=== PATIENT | male | born 1940 | race Caucasian/White ===

== ENCOUNTER 2024-04-08 11:51 | Emergency (ER) | payer MEDICARE, SELFPAY ==
--- NOTE | ~2024-04-08 | XR_ITS ---
EXAMINATION: XR CHEST CLINICAL INFORMATION: cough COMPARISON: None available. TECHNIQUE: 2 views of the chest were obtained. FINDINGS: The cardiac, hilar, and mediastinal contours are normal. Lungs are diffusely hyperaerated bilaterally. There is flattening in hemidiaphragms. There is a focal opacity in the right lower lung distribution suggestive of pneumonia. This is not well seen on the lateral projection. There is no pneumothorax or pleural effusion. Pectus excavatum noted. There is no focal osseous or soft tissue abnormality. XR/XR chest 2V IMPRESSION: 1. Right lower lung opacity consistent with pneumonia. 2. COPD. Electronically signed by: Louis Verde MD 04/08/2024 01:41 PM MALIK
--- NOTE | 2024-04-08 12:06 | ED_ITS ---
HPI - URI/Sore Throat General Chief Complaint: Dyspnea Stated Complaint: Congestion , cough 4 days Time Seen by Provider: 04/08/24 18:02 Source: patient and family Mode of arrival: ambulatory Limitations: no limitations History of Present Illness ED Provider: Jon Barriga PA-C HPI Narrative: 83 y/o male with history of Alzheimer's dementia who presents to the ER for evaluation of SOB, chest congestion, productive cough for the last 3-4 days. son lives with them and is home sick with a virus. family reports he is very active, walks daily. he has been still able to walk around without SOB or difficulty breathing. he has not been complaining of chest pain. no fevers. he has been getting delsym for his symptoms at home. he is UTD on his flu vaccine and COVID shot. MD elicited complaint: cough and other (chest congestion, SOB) Onset (ago): day(s) Consistency: progressively worsening Severity: moderate Able to tolerate fluids by mouth: Yes Exacerbating factors: other (coughing) Relieving factors: OTC cold medicine Context: sick contacts Associated symptoms: cough and shortness of breath Treatments prior to arrival: none Related Data Previous Rx's ?Medication ?Instructions ?Recorded amoxicillin 875 mg-potassium 1 tab PO BID #14 tabs 04/08/24 clavulanate 125 mg tablet azithromycin 250 mg tablet See Rx Instructions PO .COMPLEX #6 04/08/24 (Zithromax Z-Teofilo) tabs benzonatate 100 mg capsule 100 mg PO TID PRN cough #20 caps 04/08/24 Allergies Allergy/AdvReac Type Severity Reaction Status Date / Time No Known Allergies Allergy Verified 04/08/24 12:10 Review of Systems Review of Systems: Yes all other systems are reviewed and are negative [facility] Social History Social History Advance Directives: No Advance Directives Information Provided: No Physical Exam Vital Signs: Vital Signs: Last Vital Signs Temp 0 F L 04/08/24 18:39 Pulse 0 L 04/08/24 18:39 Resp 0 L 04/08/24 18:39 BP 0/0 L 04/08/24 18:39 Pulse Ox 96 04/08/24 18:39 O2 Del Method Room Air 04/08/24 18:39 BMI result Body Mass Index 21.1 Appearance: Alert. Oriented X2. No acute distress. Head: normocephalic, atraumatic. Eyes: Pupils equal, round and reactive to light. ENT: Pharynx normal. No tonsillar swelling or exudate. Neck: Normal inspection. Neck supple. CVS: Normal heart rate and rhythm. Pulses normal. Respiratory: No respiratory distress. Breath sounds in expiratory wheeze in RUL that cleared after coughing, otherwise clear throughout. congested cough Abdomen: Soft and nontender. +BS x4 Skin: Skin warm and dry. Normal skin color. Normal skin turgor. No rashes. Extremities: No lower extremity edema. No joint swelling. Neuro/psych: Oriented X 2. steady gait, Normal speech. steady gait Medical Decision Making Medical Decision Making [facility] Narrative: 83-year-old with a history of Alzheimer's dementia presents to the ER for evaluation of 3-4 days of congested cough, shortness of breath. VSS on arrival. he is with his and daughter. he appears well. CXR showing RLL Infiltrate and he is positive for influenza A family wants to take him home. he is getting restless in the WR after waiting several hours. He was brought back into triage for re-eval. SPO2 95%. ambulated around w/ pulse ox and sats remained 96-97% no distress comfortable w/ discharge under the care of his family for CAP and supportive care for flu Differential Diagnosis Differential Diagnoses: The differential diagnosis associated with the presentation includes strep, covid, flu, rsv, other viral syndrome, bronchitis, pneumonia Admission/Observation Consideration of admission/observation: Escalation of care including admission/observation considered Lab Data [facility] Lab Attestation statement: I reviewed the patient's lab results. Labs: Lab Results 04/08/24 Range/Units 12:39 Influenza Type A (PCR) POSITIVE A (Negative) Influenza Type B (PCR) NEGATIVE (Negative) RSV RNA Qual (PCR) NEGATIVE (Negative) SARS-CoV-2 RNA (RT-PCR) NEGATIVE (Negative) Independent Interpretation I performed an independent interpretation of an: Plain X-Ray Interpretation: patchy infiltrate in RLL c/w PNA Radiology Impression Discussion of test interpretation with radiology: I have reviewed the radiologist's reading. Independent Historian Clinical information obtained from an independent historian. History obtained from or confirmed by: Spouse and Other (adult daughter ) Prescription Management I considered prescription management with: Antiviral and Antibiotic Chronic Conditions Patient?s care impacted by: Other (alzheimers ) Critical Care Time Critical Care Time Critical Care Time: No Discharge Plan Discharge Clinical Impression: Influenza A, CAP (community acquired pneumonia) Patient Disposition: Home, Self-Care Instructions: Influenza (DC), Community Acquired Pneumonia (DC) Additional Instructions: Chest x-ray showed right lower lobe pneumonia He tested positive for Flu. Take the prescribed antibiotics as directed, complete the entire course and do not miss any doses Rest and drink plenty of fluids Take over the counter cold/flu medications as needed for your symptoms. Follow up with your primary care doctor this week If you develop new or worsening symptoms call 911 or come back to the ER for further evaluation. Prescriptions: New azithromycin [Zithromax Z-Teofilo] 250 mg tablet See Rx Instructions .ROUTE .COMPLEX Qty: 6 0RF Rx Instructions: take 500 mg today (day 1), then 250 mg for 4 days (days 2-5) benzonatate 100 mg capsule 100 mg PO TID PRN (Reason: cough) Qty: 20 0RF amoxicillin-pot clavulanate 875-125 mg tablet 1 tab PO BID Qty: 14 0RF Referrals: Dom Dupont MD [Primary Care Provider] - Interventions: ED Discharge Assessment Last Done: 04/08/24 18:39 Discharge Date/Time: 04/08/24 18:40 Print Language: Barbadian
[2024-04-08 12:07] VITALS: BP 156/87; PULSE 55; RESP 20; TEMP 36.6; O2SAT 95; BMI 21.1
[2024-04-08 13:25] LABS: Influenza A PCR POSITIVE (Negative); Influenza B PCR NEGATIVE (Negative); Resp Syncy Virus RNA Qual PCR NEGATIVE (Negative); SARS COV2 PCR INHOUSE NEGATIVE (Negative)
[2024-04-08 17:59] VITALS: BP 189/97; PULSE 60; RESP 18; TEMP 36.4; O2SAT 95
[2024-04-08 18:02] VITALS: O2SAT 96
--- OUTSIDE RECORDS SUMMARY | 2024-04-08 18:12 | XMS_ITS | Encounter Summary ---
Author Organization [facility] Address [address] [place] [address] Care Team Providers Care Scrap Carrier Name Role Phone Dom Dupont MD Primary Care Provider [phone] Reason for Visit * Reason Onset Date Comments Cough 04/08/2024 Hacking and conf used Encounter Details Date Type Department Care Team ([facility] st Contact Info) Description 04/08/2024 Telephone Adult Medicine [facility] [address] [place] [phone] Dmo Dupont MD [address] [place] [address] [phone] Cough (Hacking and confused ) Social History Tobacco Use Types Packs/Day Years Used Date Smoking Tobacco: Every Day Cigarettes Last attempted to quit: 02/16/2002 Smokeless Tobacco: Never Alcohol Use Standard Drinks/Week Comments Yes 0 (1 standard drink = 0.6 oz pur e alcohol) Sex and Gender Information Value Date Recorded Sex Assigned at Not on file Gender Identity Not on file Sexual Orientation Not on file Job Start Date Occupation Industry Not on file Not on file Not on file documented as of this encounter Progress Notes * Monet Kim RN - 04/08/2024 10:59 AM EST Spoke with Pt's , Maribell. Pt has cough and new confusion. Advised Robert Reyna to be seen in the ED. Maribell verbalized understanding and agreed with plan. * ZORAIDA hyatt - 04/08/2024 10:02 AM EST Pt is calling states that has a cough and and confution pt has not has covid test yet.She states that pt does not have fever and would like to have medication sent for pt. She is worried that pt might have an infection in his chest. Pt states this has been going on for 3 days now. Best number to call is [phone] it is the home phone and that is the only phone they has she st ates documented in this encounter Plan of Treatment Upcoming Encounters Date Type Department Care Team (Late st Contact Info) Description 08/21/2024 1:00 PM EDT Office Visit Adult Medicine [facility] [address] [place] [phone] Dom Dupont MD [address] [place] [phone] documented as of this encounter Visit Diagnoses Not on filedocumented in this encounter Care Teams Scrap Carrier Relationship Specialty Start Date End Date Dom Dupont MD [address] [place] [phone] PCP - General 02/16/1993 documented as of this encounter
--- OUTSIDE RECORDS SUMMARY | 2024-04-08 18:12 | XMS_ITS | Clinical Summary ---
Author Organization [facility] [address] [place] [address] [place] [phone] Phone Care Team Providers Care Valve Repairer Reclamation Name Role Phone Dom Dupont MD Primary Care Provider [phone] Allergies No known active allergies Medications Medication Sig Dispensed Refills Start Date End Date Status aspirin 81 mg EC tablet 1 TABLET DAILY Active citalopram (CeleXA) 20 mg tablet Take 20 mg by mouth daily. Active donepeziL (ARICEPT) 10 mg tablet Take 10 mg by mouth at bedtime. Active glucosamine/chondroiti n/C/Miguel Ángel (GLUCOSAMINE 1500 COMPLEX ORAL) Take 1 Tab by mouth daily. Active latanoprost (XALATAN) 0.005 % ophthalmic solution 01/24/2020 Active MULTIVITAMIN ORAL Take 1 Tab by mouth daily. Active timoloL (BetimoL) 0.5 % ophthalmic solution Place 1 Drop into both eyes 2 times daily. Active FLUoxetine (PROzac) 20 mg capsule Take 1 capsule (20 mg total) by mouth 1 (one) time each day in the morning. 02/11/2024 Active memantine (NAMENDA) 5 mg tablet Take 1 tablet (5 mg total) by mouth 2 (two) times a day. for 90 days 01/18/2024 Active timolol (TIMOPTIC) 0.5 % ophthalmic solution INSTILL 1 DROP IN BOTH EYES EVERY MORNING 09/06/2023 Active Active Problems Problem Noted Date Diagnosed Date DNR (do not resuscitate) 02/27/2024 MCI (mild cognitive impairment) 08/21/2019 Overview (01/22/2024): Following with neurology Anxiety 06/13/2016 Neuropathy 06/07/2015 Overview (01/22/2024): Numbness of feet/toe, follows with Dr. Caban Prostate CA 12/09/2009 Overview (01/22/2024): S/p prostectomy. Erectile dysfunction 05/15/2007 Overview (01/22/2024): S/p prostectimy Malignant neoplasm of prostate 11/10/2005 Overview (01/22/2024): mayda 7. s/p robotic prostectomy 09/12/[address] 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 05/24/2005 Encounters Date Type Department Care Team Description 04/08/2024 Telephone Adult Medicine [address] [phone] Dom Dupont MD Cough (Hacking and confused ) 02/27/2024 1:00 PM EST Office Visit Adult [address] [phone] Dom Dupont MD Decreased vision in both eyes (Primary Dx); Nonexudative age-related macular degeneration, unspecified laterality, unspecified stage; Anxiety; Moderate late onset Alzheimer's dementia without behavioral disturbance, psychotic disturbance, mood disturbance, or anxiety (CMS/HCC); DNR (do not resuscitate) from Last 3 Months Immunizations Name Administration Dates Next Due Influenza Quadravalent, MDCK , 0.5ml, with preservative (Flucelvax) 6mo and older 12/31/2016 Influenza trivalent, 0.5mL ( Fluzone High-dose) 65yo and older 12/05/2022,12/06/2021,01/27/2021,01/05,02/19/2019,01/08/2018,12/08/2015 ,11/30/2014 Influenza trivalent, with pr eservative (Fluzone; Afluria) 6mo and older 01/14/2013,01/19/2012,11/28/2010,12/09 Fandeavor SARS-CoV-2 COVID-19, mRNA, LNP-S, preservative free 08/01/2021,02/05/2021 Pneumococcal conjugate 13 va lent (Prevnar 13, PCV13) 2mo and older 01/06/2020 Pneumococcal polysaccharide 23 valent (Pneumovax 23) 2yo and older 11/28/2010,04/16/2002 Td Tetanus diptheria (Tdvax) 7yo and older 04/03/2013 Td, Unspecified 04/16/2002 Tdap Tetanus diptheria acell ular pertussis (Boostrix; Adacel) 7yo and older 12/05/2022 Surgical History Surgery Date Site/Laterality Comments COLONOSCOPY 05/19/13 PROCEDURE: HISTORICAL COLONOSCOPY; COMMENT: tics; would not repeat ANKLE SURGERY 04/11/15 Dr Druan Left PROCEDURE: HISTORICAL ANKLE SURGERY; COMMENT: ORIF distal fib, deltoid lig repair OTHER SURGICAL HISTORY PROCEDURE: HISTORICAL SQUAMOUS CELL CA; COMMENT: 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 s/p robotic prostectomy 09/12/05 Prostate CA (CMS/HCC) 12/09/2009 DX:Prostat e CA ([facility]) Unspecified malignant neopla sm of skin of other and unspecified parts of face DX:Unspecified malignant james plasm of skin of other and unspecified parts of face Neuropathy 06/07/2015 DX:Neuropathy; C OMMENT: Numbness of feet/toe, follows with Dr. Caban History of squamous cell car cinoma of skin 03/05/2012 DX:History of squamous cell carcinoma of skin; COMMENT: SCC 2 left forearm (in situ) 02/27 chest (in situ) Anxiety 06/13/2016 DX:Anxiety Old cerebrovascular accident (CVA) without late effect 04/08/2018 DX:Old cerebrovascular accid ent (CVA) without late effect; COMMENT: Accidental finding by neurology on MRI for evaluation of patients getting lost in familiar environment Actinic keratosis, hx of DX:Acti rick keratosis, hx of Family History Medical History Relation Name Comments Lung cancer Father Other: ? bruce's Mother at age mid 70' Other: personality disorder Son Relation Name Status Comments Father Mother Son Social History Tobacco Use Types Packs/Day Years [...] file Not on file Not on file Obstetrics History Last Filed Vital Signs Vital Sign Reading Time Taken Comments Blood Pressure 124/60 02/27/2024 1:02 PM EST Pulse 70 02/27/2024 1:02 PM EST Temperature 36.4 ??C (97.5 ??F) 02/27/2024 1:02 PM ES T Respiratory Rate 14 02/27/2024 1:02 PM EST Oxygen Saturation 98% 02/27/2024 1:02 PM EST Inhaled Oxygen Concentration - - Weight 78.9 kg (174 lb) 02/27/2024 1:02 PM EST Height 185.4 cm (6' 1 ) 02/27/2024 1:02 PM EST Body Mass Index 22.96 02/27/2024 1:02 PM EST Plan of Treatment Upcoming Encounters Date Type Department Care Team (Late st Contact Info) Description 08/21/2024 1:00 PM EDT Office Visit Adult Medicine [facility] [address] [place] [phone] Dom Dupont MD [address] [place] [address] Health Maintenance Due Date Last Done Comments RSV Immunization Patients 60+ Years Old (1 - 1-dose 75+ series) 07/15/2014 Colorectal Cancer Screening: Stool Based Tests (FOBT/FIT) 02/25/2022 Social Influencers of Health Screening 02/25/2022 Depression Screening 08/15/2024 08/16/2023 Falls Risk Assessment 08/15/2024 08/16/2023 Medicare Annual Wellness Visit 08/15/2024 08/16/2023 Cholesterol Screening (Lipid Panel) 11/29/2027 11/28/2022 DTaP,Tdap,and Td Vaccines (4 - Td or Tdap) 12/05/2032 12/05/2022, 04/03/2013, 04/16/2002 Pneumococcal Vaccine: 65+ Years Completed 08/01/2021, 01/06/2020, 11/28/2010, Additional history exists Zoster Vaccines Completed 10/09/2023, 06/12/2023 COVID-19 Vaccine Completed 02/09/2024, , 08/01/2021, Additional history exists Influenza Vaccine Completed 02/09/2024, , 12/06/2021, Additional history exists HIB Vaccines Aged Out No longer eligi ble based on patient's age to complete this topic HPV Vaccines Aged Out No longer eligi ble based on patient's age to complete this topic Hepatitis A Vaccines Aged Out No long er eligible based on patient's age to complete this topic Hepatitis B Vaccines Aged Out No long er eligible based on patient's age to complete this topic IPV Vaccines Aged Out No longer eligi ble based on patient's age to complete this topic MMR Vaccines Aged Out No longer eligi ble based on patient's age to complete this topic Meningococcal ACWY Vaccine Aged Out N o longer eligible based on patient's age to complete this topic RSV Immunization Patients Under 20 months Aged Out No longer eligible based on patient's age to complete this topic Varicella Vaccines Aged Out No longer eligible based on patient's age to complete this topic Procedures Procedure Name Priority Date/Time Associated Diagnosis Comments DEPRESSION SCREENING Routine 08/16/2023 FALLS RISK ASSESSMENT Routine 08/16/2023 LIPID PANEL Routine 11/28/2022 from Last 3 Months or Most Recently Relevant to Health Maintenance Results * Falls Risk Assessment (08/16/2023) [facility] Falls Risk Assessment abstracted Historical Provider MD DENNIS Perkins * Depression Screening (08/16/2023) Pathologist [facility] Depression Screening abstracted Historical Provider MD DENNIS BOB E * Lipid panel (11/28/2022) Pathologist [facility] LDL/HDL Ratio 3 0 - 4 Triglycerides 130 0 - 150 mg/dL Cholesterol 182 0 - 200 mg/dL HDL 61 40 mg/dL LDL Cholesterol 95 0 - 100 mg/dL Blood Venous blood specimen / Unknown Historical Provider LAB BLOOD ORDERAB LES from Last 3 Months or Most Recently Relevant to Health Maintenance Care Teams Valve Repairer Reclamation Relationship Specialty Start Date End Date Dom Dupont MD [address] [place] [address] PCP - General 02/16/1993
[2024-04-08 18:39] VITALS: BP 0/0; PULSE 0; RESP 0; TEMP -17.7; TEMP 0; O2SAT 96
== END 2024-04-08 18:40 | disposition home or self-care (01) ==
LOC: HO.ED 18:09
PROVIDERS: Physician Assistant; Emergency Provider Emergency Medicine Emergency Medical Services; PCP Internal Medicine
DX: J10.1 Influenza due to other identified influenza virus with other respiratory manifestations (principal); J18.9 Pneumonia, unspecified organism; R06.02 Shortness of breath; R05.9 Cough, unspecified; R09.89 Other specified symptoms and signs involving the circulatory and respiratory systems; Z03.818 Encounter for observation for suspected exposure to other biological agents ruled out
CPT/HCPCS: 0241U; 71046; 99282; 99283

== ENCOUNTER → 2024-04-08 12:07 | Outpatient (BNV) | payer MEDICARE, SELFPAY | PROVIDERS: PCP Internal Medicine; Visit Provider Radiology Diagnostic Radiology | DX: R05.9 Cough, unspecified (principal) | CPT/HCPCS: 71046 ==

== ENCOUNTER 2024-09-24 11:01 | Outpatient (AMB) | payer MEDICARE, SELFPAY ==
--- NOTE | 2024-09-24 11:10 | MHC.OFFVIS ---
Intake Visit Reasons: 6m/ ad Allergies No Known Allergies Allergy (Verified 04/08/24 12:10) Medication List - Last Reconciled 09/24/24 by Paula Stanton MD amoxicillin-pot clavulanate 875-125 mg 1 tab PO BID benzonatate 100 mg PO TID PRN donepezil 10 mg PO BEDTIME fluoxetine 20 mg PO QAM latanoprost 0.005% 1 drp ophthalmic (eye) BEDTIME memantine 5 mg PO BID omega-3 fatty acids 500 mg PO BID timolol maleate 0.5% 1 drp ophthalmic (eye) DAILY HPI Comments Details: 84 years old man with probably Alzheimer type of dementia presented with forgetfulness and confusion around 2018. He was doing ok but he was forgetting to take his meds. Hie eyesight was also affected. 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 He was not driving. [facility] Medical History (Updated 09/24/24 @ 11:17 by Paula Stanton MD) Glaucoma Depression Alzheimer disease Cerebral infarct MCI (mild cognitive impairment) Cerebral microvascular disease Encephalopathy Tarsal tunnel syndrome Peripheral neuropathy Sensory neuropathy Review of Systems Const Details: Constitutional:?No fever, chills, fatigue, weight loss, or night sweats. HEENT:? Difficulty with vision, left eye was blind while right was also affected Neurological:? Complain of forgetfulness Psychiatric:?No anxiety, depression, mood swings, sleep disturbance, or hallucinations. Endocrine:?No heat/cold intolerance, polydipsia, polyuria, or hair/skin changes. Hematologic/Lymphatic:?No easy bruising, bleeding, or lymphadenopathy. Integumentary (Skin):?No rash, lesions, itching, or color changes. ? Physical Exam Neuro Other: Mental Status: Alert and oriented to person, place, and time. Normal attention. Normal spontaneous speech, fluency, and comprehension. No obvious issues with mood and memory. Affect is appropriate. Cranial Nerves: CN II: Visual rossi full to confrontation, visual acuity intact. CN III, IV, : Pupils equal, round, reactive to light and accommodation. Extraocular movements are normal. CN V: Facial sensation is normal. CN VII: Facial movements symmetrical. CN VIII: Hearing intact to bedside conversation is normal. CN IX, X: Palate elevates symmetrically. CN XI: Shoulder shrug and head turn symmetrical. CN XII: Tongue midline without atrophy or fasciculations. Extrapyramidal: Full facial expressions and blinking. No rigidity. Movements are appropriate with no tremor or abnormality. Speech: Normal; no dysarthria or tremor. Assessment & Plan Assessment & Plan (1) Alzheimer dementia: Comment: NICS at [facility] in Mar 2018: OK EEG at office in 2018: WNL MRI brain at in Feb 2018: Mild MVD NCV/EMG LE 03/23/14 BILATERAL DISTAL NEUROPATHY ACROSS THE TARSAL TUNNEL and mildly slow motor conduction velocities. Code(s): G30.9 - Alzheimer's disease, unspecified; F02.80 - Dementia in other diseases classified elsewhere, unspecified severity, without behavioral disturbance, psychotic disturbance, mood disturbance, and anxiety Category: Medical Qualifiers: Alzheimer's disease onset: late onset Dementia severity: mild Dementia behavioral or psychological symptom: with mood disturbance Qualified Code(s): G30.1 - Alzheimer's disease with late onset; F02.A3 - Dementia in other diseases classified elsewhere, mild, with mood disturbance Plan Impression: [id number] dementia probably of Alzheimer type Recommendations: 1. Donepezil 10 mg a day 2. Memantine 5 mg twice a day 3. Fluoxetine 20 mg a day Medications: New donepezil 10 mg PO BEDTIME 90 tabs 1RF fluoxetine 20 mg PO QAM 90 caps 1RF memantine 5 mg PO BID 180 tabs 1RF Coding Level of Care Code Tele Est Pt Level 4 (62737) Diagnoses Mild late onset Alzheimer's dementia with mood disturbance G30.1; F02.A3 Alzheimer's disease onset: late onset Dementia severity: mild Dementia behavioral or psychological symptom: with mood disturbance
--- OUTSIDE RECORDS SUMMARY | 2024-09-24 12:11 | XMS_ITS | Clinical Summary ---
Author Organization [facility] [address] [place] [address] [place] [phone] Phone Care Team Providers Care Dish Person Name Role Phone Dom Dupont MD Primary Care Provider [phone] Allergies No known active allergies Medications aspirin 81 mg EC tablet 1 TABLET DAILY Activ e citalopram (CeleXA) 20 mg tablet Take 20 mg by mouth daily. Active donepeziL (ARICEPT) 10 mg tablet Take 10 mg by mouth at bedtime. Active glucosamine/alana droitin/C/Miguel Ángel (GLUCOSAMINE 1500 COMPLEX ORAL) Take 1 Tab by mouth daily. Active latanoprost (XALATAN) 0.005 % ophthalmic solution 0 Active MULTIVITAMIN ORAL Take 1 Tab by mouth daily. Active timoloL (BetimoL) 0.5 % ophthalmic solution Active FLUoxetine (PROzac) 20 mg capsule Take 1 capsule (20 mg total) by mouth 1 (one) time each day in the morning. 4 Active memantine (NAMENDA) 5 mg tablet Take 1 tablet (5 mg total) by mouth 2 (two) times a day. for 90 days 4 Active timolol (TIMOPTIC) 0.5 % ophthalmic solution INSTILL 1 DROP IN BOTH EYES EVERY MORNING 4 Active azithromycin (ZITHROMAX) 250 mg tablet Take 1 tablet (250 mg total) by mouth 1 (one) time each day. Active benzonatate (TESSALON) 100 mg capsule Take 1 capsule (100 mg total) by mouth 3 (three) times a day if needed for cough. Do not crush or chew. Active amoxicillin-clav ulanate (AUGMENTIN) 875-125 mg per tablet Take by mouth. Activ e tafluprost, PF, 0.0015 % dropperette Administer into affected eye(s). 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 Caban Prostate CA ([facility] V24, [facility] V28) 0 Overview (01/22/2024): S/p prostectomy. Erectile dysfunction 05/15/2007 Overview (01/22/2024): S/p prostectimy Malignant neoplasm of prostate ([facility] V24, [facility] V28) 11/10/2005 Overview (01/22/2024): mayda 7. s/p robotic prostectomy 09/12/[address] 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 05/24/2005 Encounters Date Type Department Care Team Description 08/21/2024 1:00 PM EDT Office Visit Adult Medicine [address] [phone] Dom Dupont MD Alzheimer's disease ([facility] V24, [facility] V28) (Primary Dx); MCI (mild cognitive impairment); Anxiety; Patient has healthcare proxy; Prostate CA ([facility] V24, [facility] V28) from Last 3 Months Immunizations Name Administration Dates Next Due Influenza Quadravalent, MDCK , 0.5ml, with preservative (Flucelvax) 6mo and older 12/31/2016 Influenza trivalent, 0.5mL ( Fluzone High-dose) 65yo and older 12/05/2022,12/06/2021,01/27/2021,01/05,02/19/2019,01/08/2018,12/08/2015 ,11/30/2014 Influenza trivalent, with pr eservative (Fluzone; Afluria) 6mo and older 01/14/2013,01/19/2012,11/28/2010,12/09 Pfizer SARS-CoV-2 COVID-19, mRNA, LNP-S, preservative free 08/01/2021,02/05/2021 [...] would not repeat ANKLE SURGERY 04/11/15 Dr Duran Left PROCEDURE: HISTORICAL ANKLE SURGERY; COMMENT: ORIF distal fib, deltoid lig repair OTHER SURGICAL HISTORY PROCEDURE: HISTORICAL SQUAMOUS CELL CA; 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 s/p robotic prostectomy 09/12/05 Prostate CA (CMS/HCC V24, CM S/HCC V28) 12/09/2009 DX:Prostate CA (HCC) Unspecified malignant neopla sm of skin of other and unspecified parts of face DX:Unspecified malignant james plasm of skin of other and unspecified parts of face Neuropathy 06/07/2015 DX:Neuropathy; C OMMENT: Numbness of feet/toe, follows with Dr. 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) [...] Recorded Sex Assigned at Not on file Legal Sex Male 4:40 PM EST Gender Identity Not on file Sexual Orientation Not on file Obstetrics History Last Filed Vital Signs Vital Sign Reading Time Taken Comments Blood Pressure 100/60 08/21/2024 12:54 PM EDT Pulse 66 08/21/2024 12:54 PM EDT Temperature 36.3 C (97.3 F) 08/21/2024 12:54 PM EDT Respiratory Rate 20 08/21/2024 12:54 PM EDT Oxygen Saturation 98% 04/14/2024 2:46 PM EST Inhaled Oxygen Concentration - - Weight 76.2 kg (168 lb) 08/21/2024 12:54 PM EDT Height 185.4 cm (6' 1 ) 08/21/2024 12:54 PM EDT Body Mass Index 22.16 08/21/2024 12:54 PM EDT Plan of Treatment Upcoming Encounters Date Type Department Care Team (Late st Contact Info) Description 12/03/2024 1:15 PM EDT [place] [facility] [place] [address] [place] [phone] Dom Dupont MD [address] [place] [address] Health Maintenance Due Date Last Done Comments RSV Immunization Adult Patients (1 - 1-dose 75+ series) 07/15/2014 Colorectal Cancer Screening: Stool Based Tests (FOBT/FIT) 02/25/2022 Social Influencers of Health Screening 02/25/2022 COVID-19 Vaccine (7 - Pfizer risk 2023- season) 2024 02/09/2024, 12/06/2021, 08/01/2021, Additional history exists Depression Screening 08/15/2024 08/16/2023 Falls Risk Assessment 08/15/2024 08/16/2023 Medicare Annual Wellness Visit 08/15/2024 08/16/2023 Influenza Vaccine (#1) 2024 , 12/05/2022, 12/06/2021, Additional history exists Cholesterol Screening (Lipid Panel) 11/29/2027 11/28/2022 DTaP,Tdap,and Td Vaccines (4 - Td or Tdap) 12/05/2032 12/05/2022, 04/03/2013, 04/16/2002 Pneumococcal Vaccine: 50+ Years Completed 08/01/2021, 01/06/2020, 11/28/2010, Additional history exists Zoster Vaccines Completed 10/09/2023, 06/12/2023 HIB Vaccines Aged Out No longer eligi [...] patient's age to complete this topic Meningococcal B Vaccine Aged Out No l onger eligible based on patient's age to complete [...] Maintenance Results * Falls Risk Assessment (08/16/2023) Pathologist [facility] Falls Risk Assessment abstracted [facility] Provider HEALTH MAINTENANCE Final Result * Depression Screening (08/16/2023) Pathologist [facility] Depression Screening abstracted [facility] Provider HEALTH MAINTENANCE Final Result * Lipid panel (11/28/2022) Pathologist [facility] LDL/HDL Ratio 3 0 - 4 Triglycerides 130 0 - 150 mg/dL Cholesterol 182 0 - 200 mg/dL HDL 61 >=40 mg/dL LDL Cholesterol 95 0 - 100 mg/dL Blood Venous blood specimen / Unknown [facility] Provider LAB BLOOD ORDERABLES Annie l Result from Last 3 Months or Most Recently Relevant to Health Maintenance Insurance MEDICARE [facility] Care Teams Dish Person Relationship Specialty Start Date End Date Dom Dupont MD [address] [place] [id number] PCP - General 02/16/1993
== END 2024-09-24 11:22 | disposition home or self-care (01) ==
LOC: HO.HSM 11:01
PROVIDERS: PCP Internal Medicine; Visit Provider Psychiatry & Neurology Neurology
DX: G30.1 Alzheimer's disease with late onset (principal); F02.A3 Dementia in other diseases classified elsewhere, mild, with mood disturbance
CPT/HCPCS: 99214

== ENCOUNTER → 2024-09-24 11:01 | Outpatient (BNVA) | payer MEDICARE, SELFPAY | PROVIDERS: PCP Internal Medicine; Visit Provider Psychiatry & Neurology Neurology | DX: G30.1 Alzheimer's disease with late onset (principal); F02.A3 Dementia in other diseases classified elsewhere, mild, with mood disturbance | CPT/HCPCS: 99212 ==